=== PATIENT | female | born 1960 | race Caucasian/White ===

== ENCOUNTER 2016-11-07 08:12 | Emergency (ER) | payer BC, SELFPAY ==
[~2016-11-07] VITALS: Ht 157.5 cm; Wt 78.0 kg
[~2016-11-07 08:12] MED LIST: ASPI-232 PO; CALC500C70 PO; DICL50TA3 PO; FLUT1SPR12; IBUP600T44 PO; MULT-506 PO; OMEG10007 PO; TRAM-10 PO
[2016-11-07 08:14] VITALS: O2SAT 98
[2016-11-07 08:16] VITALS: TEMP 36.4; Ht 157.5 cm; Wt 78.0 kg
[2016-11-07] MEDS ORDERED: DIAZEPAM INJ 5 MG/ML 2 ML CARP IV STA (08:35)
[2016-11-07] MEDS ORDERED: ONDANSETRON INJ 2 MG/ML 2 ML VIAL IV STA (08:35)
[2016-11-07] MEDS ORDERED: SODIUM CHLORIDE 0.9% 1000ML 1,000 ML IV STA (08:35)
--- NOTE | 2016-11-07 08:40 | EMERGENCY ROOM VISIT NOTE ---
History First contact with patient: 08:25 Chief Complaint: DIZZY Stated Complaint: DIZZINESS Nursing Triage Summary: pt here with dizziness since this am. pt states feels nauseated and like room is spinning. pt also has been having some intermittent chest pains x several days. pt has a slight headache and back pain. hx of l4-l5 problems. no deficits or weakness noted in extremeties History of Present Illness The patient is a 56 year old female who presents to the Emergency Room with complaints of dizziness. The patient states that she woke this morning with a sense of dizziness and room spinning. She states it is associated with nausea and feeling sweaty. She states she has also had intermittent chest pain at rest for the last few weeks. She states she had significant chest pressure and pain last week. The patient also reports a history of herniated L4 disc. She currently sees Dr. Blair and takes tramadol. She reports back pain but states this is not significantly different than her ongoing back pain. She rates her discomfort a 3/10. She denies any numbness, tingling, weakness in the extremities. She denies any loss of bowel or bladder control. She reports a remote history of vertigo. Review of Systems A 10 system review of systems was completed with positives and pertinent negatives listed in the HPI. Past Medical/Surgical History Medical Problems: (1) Herniated intervertebral disc (2) Hyperlipidemia Social History Smoking Status: Never Smoker Housing Status: lives with family Current/Historical Medications Scheduled Diclofenac (Voltaren), 75 MG PO BID Scheduled PRN Meclizine Hcl (Meclizine Hcl), 1 TAB PO TID PRN for Dizziness or Vertigo Tramadol (Ultram), 2-4 TABS PO Q6H PRN for Pain Allergies Coded Allergies: Codeine (Verified Allergy, Unknown, gi upset, 11/07/16) Uncoded Allergies: narcotics (Adverse Reaction, Unknown, gi upset, 11/07/16) not really allergic just makes her stomach upset Physical Exam Vital Signs Date Time Temp Pulse Resp B/P (MAP) Pulse Ox O2 Delivery O2 Flow Rate FiO2 11/07/16 10:47 62 16 118/7 97 Room Air 11/07/16 09:56 60 16 129/60 61 130/88 66 125/95 11/07/16 08:53 72 16 115/81 93 Room Air 11/07/16 08:16 62 11/07/16 08:16 36.4 75 16 139/80 97 Room Air 11/07/16 08:14 98 Room Air Physical Exam VITALS: Vitals are noted on the nurse's note and reviewed by myself. Vital signs stable. The patient is afebrile. She is not hypotensive, tachycardic or hypoxic. GENERAL: This is a 56-year-old female, in no acute distress, nondiaphoretic, well-developed well-nourished. SKIN: The skin was pale, Without rashes, erythema, edema, or bruising. There is no tenting of the skin. Capillary reflex less than 2 seconds. HEAD: Normocephalic atraumatic. EARS: External auditory canals clear, tympanic membranes pearly haque without erythema or effusion bilaterally. EYES: Pupils equal round and reactive to light and accommodation. Conjunctivae without injection, sclerae without icterus. Extraocular movements intact. there is minimal horizontal nystagmus. NOSE: Patent, turbinates without inflammation or discharge. MOUTH: Mucous membranes moist. Tonsils are not enlarged. Pharynx without erythema or exudate. Uvula midline. Airway patent. Tongue does not deviate. NECK: Supple without nuchal rigidity. No lymphadenopathy. No thyromegaly. Cervical spine is nontender. No JVD. HEART: Regular rate and rhythm without murmurs gallops or rubs. LUNGS: Clear to auscultation bilaterally without wheezes, rales or rhonchi. No retractions or accessory muscle use. ABDOMEN: Positive bowel sounds x 4. Soft, nontender, without masses or organomegaly. MUSCULOSKELETAL: No muscle atrophy, erythema, or edema noted. Full range of motion in all extremities. Strength 5/5 throughout. NEURO: Patient was alert and oriented to person place and time. Cranial nerves II through XII grossly intact. Heel reed testing intact. Negative pronator drift. Normal sensation to light and sharp touch. No focal neurological deficits. Medical Decision & Procedures ER Provider Diagnostic Interpretation: CHEST ONE VIEW PORTABLE HISTORY: Atypical chest pain COMPARISON: None. FINDINGS: The heart is top normal in size. No pleural effusions. No pneumothorax. The left lung is clear. 5 mm nodular at the density base of the right lower lobe likely represents a calcified granuloma. No focal lung consolidations to suggest pneumonia. No evidence for pulmonary edema. IMPRESSION: No acute process. CT HEAD WITHOUT CONTRAST (CT) CLINICAL HISTORY: dizziness NAUSEA COMPARISON STUDY: No previous studies for comparison. TECHNIQUE: Axial CT of the brain is performed from the vertex to the skull base. IV contrast was not administered for this examination. CT DOSE: 638.56 mGycm FINDINGS: No intra or extra-axial mass lesions are visualized. There is no CT evidence of acute cortical infarction. There is no evidence of midline shift. There is no acute hemorrhage. No calvarial fractures are visualized. There is no evidence of pathologic ventricular dilatation. There is no evidence of acute sinusitis IMPRESSION: Normal noncontrast head CT for age. Laboratory Results 11/07/16 08:25 Red Blood Count 4.71, Mean Corpuscular Volume 89.0, Mean Corpuscular Hemoglobin 28.0, Mean Corpuscular Hemoglobin Concent 31.5, Mean Platelet Volume 9.2, Neutrophils (%) (Auto) 44.9, Lymphocytes (%) (Auto) 43.5, Monocytes (%) (Auto) 7.7, Eosinophils (%) (Auto) 2.4, Basophils (%) (Auto) 1.3, Neutrophils # (Auto) 2.05, Lymphocytes # (Auto) 1.99, Monocytes # (Auto) 0.35, Eosinophils # (Auto) 0.11, Basophils # (Auto) 0.06 11/07/16 08:25 Test 11/07/16 08:25 11/07/16 09:45 White Blood Count 4.57 K/uL (4.8-10.8) Red Blood Count 4.71 M/uL (4.2-5.4) Hemoglobin 13.2 g/dL (12.0-16.0) Hematocrit 41.9 % (37-47) Mean Corpuscular Volume 89.0 fL (80-100) Mean Corpuscular Hemoglobin 28.0 pg (25-34) Mean Corpuscular Hemoglobin Concent 31.5 g/dl (32-36) Platelet Count 346 K/uL (130-400) Mean Platelet Volume 9.2 fL (7.4-10.4) Neutrophils (%) (Auto) 44.9 % Lymphocytes (%) (Auto) 43.5 % Monocytes (%) (Auto) 7.7 % Eosinophils (%) (Auto) 2.4 % Basophils (%) (Auto) 1.3 % Neutrophils # (Auto) 2.05 K/uL (1.4-6.5) Lymphocytes # (Auto) 1.99 K/uL (1.2-3.4) Monocytes # (Auto) 0.35 K/uL (0.11-0.59) Eosinophils # (Auto) 0.11 K/uL (0-0.5) Basophils # (Auto) 0.06 K/uL (0-0.2) RDW Standard Deviation 42.2 fL (36.4-46.3) RDW Coefficient of Variation 12.9 % (11.5-14.5) Immature Granulocyte % (Auto) 0.2 % Immature Granulocyte # (Auto) 0.01 K/uL (0.00-0.02) Prothrombin Time 11.3 SECONDS (9.0-12.0) Prothromb Time International Ratio 1.1 (0.9-1.1) Activated Partial Thromboplast Time 25.9 SECONDS (21.0-31.0) Partial Thromboplastin Ratio 1.0 Anion Gap 9.0 mmol/L (3-11) Est Creatinine Clear Calc Drug Dose 77.0 ml/min Estimated GFR () 97.8 Estimated GFR (Non- 84.4 BUN/Creatinine Ratio 14.1 (10-20) Calcium Level 9.1 mg/dl (8.5-10.1) Magnesium Level 2.5 mg/dl (1.8-2.4) Total Bilirubin 0.4 mg/dl (0.2-1) Aspartate Amino Transf (AST/SGOT) 15 U/L (15-37) Alanine Aminotransferase (ALT/SGPT) 25 U/L (12-78) Alkaline Phosphatase 93 U/L (45-117) Troponin I < 0.015 ng/ml (0-0.045) Total Protein 7.0 gm/dl (6.4-8.2) Albumin 3.7 gm/dl (3.4-5.0) Globulin 3.3 gm/dl (2.5-4.0) Albumin/Globulin Ratio 1.1 (0.9-2) Thyroid Stimulating Hormone (TSH) 2.260 uIu/ml (0.300-4.500) Urine Color YELLOW Urine Appearance CLEAR (CLEAR) Urine pH 8.0 (4.5-7.5) Urine Specific [place] 1.008 (1.000-1.030) Urine Protein NEG (NEG) Urine Glucose (UA) NEG (NEG) Urine Ketones NEG (NEG) Urine Occult Blood NEG (NEG) Urine Nitrite NEG (NEG) Urine Bilirubin NEG (NEG) Urine Urobilinogen NEG (NEG) Urine Leukocyte Esterase NEG (NEG) Medications Administered Medications (Trade) Dose Ordered Sig/[place] Route Start Time Stop Time Status Last Admin Dose Admin Sodium Chloride 1,000 ml @ 999 mls/hr Q1H1M STAT IV 11/07/16 08:35 11/07/16 09:35 DC 11/07/16 08:52 999 MLS/HR Ondansetron HCl (Zofran Inj) 4 mg NOW STAT IV 11/07/16 08:35 11/07/16 08:37 DC 11/07/16 08:52 4 MG Diazepam (Valium Inj) 5 mg NOW STAT IV 11/07/16 08:35 11/07/16 08:37 DC 11/07/16 08:52 5 MG Meclizine HCl (Antivert Tab) 25 mg NOW STAT PO 11/07/16 09:39 11/07/16 09:41 DC 11/07/16 09:39 25 MG Procedure The patient was monitored on a cardiac monitor technician. They maintained a normal sinus rhythm without ectopy. ECG Indication: chest pain Rate (beats per minute): 62 Rhythm: normal sinus Findings: no acute ischemic change Comparison ECG Date: no prior available ED Course The patient was seen and examined. Previous visits were reviewed. The patient does not fever or leukocytosis. She does not have any significant electrolyte abnormality. Troponin was not elevated. TSH was within normal limits. INR was 1.1. Urinalysis was negative. Orthostatic vital signs were negative. EKG does not reveal any arrhythmia or acute ischemia Chest x-ray does not reveal any acute process CT scan of the brain does not reveal a significant abnormality The patient was hydrated with normal saline She was given 4 mg IV Zofran and 5 mg IV Valium with mild improvement in her symptoms She was then given 25 mg oral meclizine with marked improvement in her dizziness The patient presents to the emergency department with dizziness which she describes as a sense of spinning that started when she awoke this morning. It is worse with change in position. She does have some mild horizontal nystagmus. I suspect this represents benign positional vertigo. She does not have any neurologic deficit on exam. She was feeling much better with the above treatment. She did complain of a slight headache which seems similar to her previous headaches and she did not want to try any medication. She felt well not to go home. She will be given a prescription for meclizine. She should return to the ER with any worsening symptoms. The case was discussed with Dr. Parson who agrees with the assessment and treatment plan. Medical Decision DIFFERENTIAL DIAGNOSIS: Aortic dissection, myocarditis, pericarditis, cervical disc disease, costochondritis, herpes zoster, rib fracture, pleuritis, pneumonia , pulmonary embolus, tension pneumothorax, anxiety disorder, somatoform disorder , choledocholithiasis, status, esophagitis, esophageal spasm, esophageal reflux , esophageal rupture, pancreatitis, peptic ulcer disease, cardiac ischemia, ST elevation NV, acute coronary syndrome, arrhythmia, coronary artery vasospasm. vavular heart disease, coronary artery disease, CVA, TIA, vertigo, dehydration, among others among others. Impression Primary Impression: Dizziness Additional Impression: Vertigo Departure Information Dispostion Home / Self-Care Condition GOOD Prescriptions Meclizine Hcl (MECLIZINE HCL) 25 Mg Tab 1 TAB PO TID Y for Dizziness or Vertigo for 10 Days, #30 TAB Prov: Carine Allison PA-C 11/07/16 Referrals No Doctor, Assigned (PCP) Forms HOME CARE DOCUMENTATION FORM, IMPORTANT VISIT INFORMATION, Work Instructions Return To Work: 2 days Patient Instructions Dizziness Vertigo Manage 2-Observe, SSN Funding Additional Instructions Meclizine as prescribed, as needed for dizziness Contact your family doctor today to schedule a follow-up appointment for further evaluation and management Return to the emergency Department with any worsening symptoms, numbness, tingling, weakness of the extremities Problem Qualifiers
[2016-11-07 08:41] LABS: BASO % 1.3 %; BASO ABS # 0.06 K/uL (0-0.2); COMPLETE YES; EOS % 2.4 %; HEMATOCRIT 41.9 % (37-47); IG% 0.2 %; LYMPH % 43.5 %; LYMPH ABS # 1.99 K/uL (1.2-3.4); MEAN CORPUSCULAR HGB CONC 31.5 g/dl (32-36); MEAN PLATELET VOLUME 9.2 fL (7.4-10.4); MONO % 7.7 %; NEUT % 44.9 %; PLATELET COUNT 346 K/uL (130-400); RED BLOOD COUNT 4.71 M/uL (4.2-5.4); WHITE BLOOD COUNT 4.57 K/uL (4.8-10.8)
[2016-11-07 08:51] LABS: CALCIUM 9.1 mg/dl (8.5-10.1)
[2016-11-07 08:53] LABS: ALT/SGPT 25 U/L (12-78); AST/SGOT 15 U/L (15-37); BLOOD UREA NITROGEN 11 mg/dl (7-18); BUN/CREATININE RATIO 14.1 (10-20); CARBON DIOXIDE 26 mmol/L (21-32); CHLORIDE 110 mmol/L (98-107); CREATININE 0.78 mg/dl (0.60-1.20); GLUCOSE 100 mg/dl (70-99); MAGNESIUM 2.5 mg/dl (1.8-2.4); POTASSIUM 3.7 mmol/L (3.5-5.1); SODIUM 145 mmol/L (136-145)
--- NOTE | 2016-11-07 08:54 | DIAGNOSTIC IMAGING REPORT ---
CHEST ONE VIEW PORTABLE HISTORY: Atypical chest pain COMPARISON: None. FINDINGS: The heart is top normal in size. No pleural effusions. No pneumothorax. The left lung is clear. 5 mm nodular at the density base of the right lower lobe likely represents a calcified granuloma. No focal lung consolidations to suggest pneumonia. No evidence for pulmonary edema. IMPRESSION: No acute process. Electronically signed by: Alonzo Burnette M.D. 11/07/2016 8:53 AM Dictated Date/Time: 11/07/2016 8:51 AM
[2016-11-07 08:58] LABS: INR 1.1 (0.9-1.1); PROTHROMBIN TIME (PATIENT) 11.3 SECONDS (9.0-12.0)
[2016-11-07 09:04] LABS: ALB/GLOB RATIO 1.1 (0.9-2); ALKALINE PHOSPHATASE 93 U/L (45-117)
--- NOTE | 2016-11-07 09:28 | DIAGNOSTIC IMAGING REPORT ---
CT HEAD WITHOUT CONTRAST (CT) CLINICAL HISTORY: dizziness NAUSEA COMPARISON STUDY: No previous studies for comparison. TECHNIQUE: Axial CT of the brain is performed from the vertex to the skull base. IV contrast was not administered for this examination. CT DOSE: 638.56 mGycm FINDINGS: No intra or extra-axial mass lesions are visualized. There is no CT evidence of acute cortical infarction. There is no evidence of midline shift. There is no acute hemorrhage. No calvarial fractures are visualized. There is no evidence of pathologic ventricular dilatation. There is no evidence of acute sinusitis IMPRESSION: Normal noncontrast head CT for age. Electronically signed by: Keyshawn Hughes M.D. 11/07/2016 9:26 AM Dictated Date/Time: 11/07/2016 9:24 AM
[2016-11-07] MEDS ORDERED: TRAM-10 PO (09:31)
[2016-11-07] MEDS ORDERED: DICL-201 PO (09:31)
[2016-11-07] MEDS ORDERED: MECLIZINE HCL 25 MG TAB PO STA (09:39)
[2016-11-07 10:24] LABS: URINE APPEARANCE CLEAR (CLEAR); URINE BILIRUBIN NEG (NEG); URINE COLOR YELLOW; URINE NITRITE NEG (NEG); URINE SPECIFIC GRAVITY 1.008 (1.000-1.030); UROBILINOGEN NEG (NEG); ZZUR CULT IF INDIC CLEAN CATCH NO
[2016-11-07 10:26] LABS: MANUAL MICROSCOPIC REQUIRED? NO; REVIEW REQ? NO
[2016-11-07 10:47] VITALS: BP 118/7; PULSE 62; O2SAT 97
[2016-11-07] MEDS ORDERED: MECL1TAB42 PO (10:52)
== END 2016-11-07 11:16 | disposition home or self-care (01) ==
LOC: EDBD 08:16 → C.EDB 08:16 → MERGE 08:16 → C.EDB 11:16
DX: R42 Dizziness and giddiness (principal)

== ENCOUNTER 2018-01-13 16:04 | Emergency (ER) | payer OTHER ==
[~2018-01-13] VITALS: Ht 157.5 cm; Wt 80.3 kg
[~2018-01-13 16:04] MED LIST changes: +DICL-201 PO; -FLUT1SPR12; -MULT-506 PO; -OMEG10007 PO
[2018-01-13 16:13] VITALS: TEMP 36.7
[2018-01-13 16:26] VITALS: O2SAT 99
[2018-01-13] MEDS ORDERED: METOCLOPRAMIDE HCL INJ 5 MG/ML 2 ML VIAL IV. STA (16:28)
[2018-01-13] MEDS ORDERED: ACETAMINOPHEN 325 MG TAB PO STA (16:28)
[2018-01-13] MEDS ORDERED: DiphenhydrAMINE HCL 50 MG/ML VIAL IV STA (16:28)
[2018-01-13] MEDS ORDERED: SODIUM CHLORIDE 0.9% 1000ML 1,000 ML IV STA (16:28)
--- NOTE | 2018-01-13 16:29 | EMERGENCY ROOM VISIT NOTE ---
History Report prepared by Torsten: Juan C Rodriguez Under the Supervision of: Dr. Colton Sanchez M.D. First contact with patient: 16:16 Chief Complaint: DIZZY Stated Complaint: SWOLLEN EYE NAUSEA DIZZY History of Present Illness The patient is a 57 year old female who presents to the Emergency Room with complaints of dizziness and nausea beginning last night, and right-sided facial drooping beginning at 10:00 this morning. The patient denies using blood thinners, a history of stroke, or a history of Brown's palsy. She notes a headache on the top of her head that is constant. She reports she took 2 ibuprofen last night with no improvement. The patient denies recent head trauma , but reports that she fell 3 times recently. She states she is on atorvastatin for cholesterol. Source of History: patient Onset: last night (dizziness and nausea), this morning at 10:00 (facial drooping) Position: head, other (global) Quality: other (nausea, vomiting, facial drooping) Modifying Factors (Relieving): other (no improvement with ibuprofen) Associated Symptoms: + headache (top of head, constant) Review of Systems See HPI for pertinent positives and negatives. A total of ten systems were reviewed and were otherwise negative. Past Medical & Surgical Medical Problems: (1) Herniated intervertebral disc (2) Hyperlipidemia Surgical Problems: (1) History of abdominoplasty (2) History of oophorectomy Family History Patient reports no known family medical history. Social History Smoking Status: Never Smoker Smokeless Tobacco Use: No Alcohol Use: none Marital Status: single Housing Status: lives with family Occupation Status: employed Current/Historical Medications Scheduled Artificial Tears Oph Oint (Lacri-Lube Sop Oph Oint), 0.25-0.5 INCH OP QID Aspirin (Aspirin Ec), 81 MG PO DAILY Atorvastatin (Lipitor), 10 MG PO DAILY Escitalopram (Lexapro), 10 MG PO DAILY Fish Oil ([place]-3), 1 CAP PO DAILY Multivitamin (Multivitamin), 1 TAB PO DAILY Prednisone (Prednisone), 60 MG PO DAILY Valacyclovir Hcl (Valtrex), 1 GM PO TID Scheduled PRN Acetaminophen (Tylenol), 500 MG PO UD PRN for Pain Fluticasone Propionate (Nasal) (Flonase Allergy Relief Ch), 2 SPRAYS MALINDA DAILY PRN for Allergy Symptoms Ibuprofen (Advil), 400-600 MG PO Q6H PRN for Pain Naproxen (Aleve), 220 MG PO UD PRN for Pain Tramadol (Ultram), 25-50 MG PO Q6H PRN for Pain Allergies Coded Allergies: Codeine (Unverified Adverse Reaction, Mild, Naisea and vomiting, 04/11/16) Uncoded Allergies: narcotics (Adverse Reaction, Unknown, gi upset, 11/08/16) not really allergic just makes her stomach upset Physical Exam Vital Signs Date Time Temp Pulse Resp B/P (MAP) Pulse Ox O2 Delivery O2 Flow Rate FiO2 01/13/18 18:12 56 20 132/78 99 01/13/18 17:26 54 132/81 98 Room Air 57 134/85 60 131/77 01/13/18 16:26 99 Room Air 01/13/18 16:13 36.7 64 18 106/69 99 Room Air Physical Exam GENERAL: Awake, alert, well-appearing, NAD. Wearing glasses. HENT: Normocephalic, atraumatic. EYES: Normal conjunctiva. Sclera non-icteric. PERRL. No anisocoria. NECK: Supple. No nuchal rigidity. FROM. RESPIRATORY: CTAB, no rhonchi, wheezing, crackles CARDIAC: RRR, no MRG ABDOMEN: Soft, NTND, BS+ MSK: No chest wall TTP, no LE edema NEURO: CN 2-12 intact with exception of facial nerve palsy, complete right side , watery right eye. 5/5 upper and lower extremity strength, no dysmetria, no drift, good finger to nose, no sensory deficits. Finger count grossly normal. SKIN: No rash or jaundice noted. Medical Decision & Procedures ER Provider Diagnostic Interpretation: Radiology results as stated below per my review and radiologist interpretation: CHEST ONE VIEW PORTABLE CLINICAL HISTORY: 57 years-old Female presenting with EVALUATE WEAKNESS. TECHNIQUE: Portable upright AP view of the chest was obtained. COMPARISON: 11/07/2016. FINDINGS: Atherosclerosis of the aortic arch. Cardiac silhouette normal in size. Calcified granuloma again noted at the right lung base. No other focal opacity. No large effusion or pneumothorax. Osseous structures normal. Upper abdomen normal. IMPRESSION: 1. No acute cardiopulmonary disease. Electronically signed by: Wesly Clark M.D. 01/13/2018 4:53 PM Dictated Date/Time: 01/13/2018 4:[address] OF THE HEAD WITHOUT CONTRAST CLINICAL HISTORY: Weakness. Dizziness. COMPARISON STUDY: Head CT November 07, 2016. CT DOSE: 537.48 mGy.cm TECHNIQUE: Helical axial images of the head were obtained without IV contrast. Automated exposure control was utilized for the study. A dose lowering technique was utilized adhering to the principles of ALARA. FINDINGS: No acute intracranial hemorrhage, midline shift or mass effect is present. Brain volume is normal. Ventricular system is normal. Basilar cisterns are patent. Eller-white differentiation is maintained. There are no findings to suggest acute dural sinus thrombosis or acute territorial infarct. There are no significant calvarial abnormalities. Visualized portions of the sinuses and mastoid air cells are clear. IMPRESSION: No acute intracranial findings. Electronically signed by: Abdifatah Rush M.D. 01/13/2018 5:15 PM Dictated Date/Time: 01/13/2018 5:13 PM Laboratory Results 01/13/18 16:30 Red Blood Count 4.51, Mean Corpuscular Volume 88.2, Mean Corpuscular Hemoglobin 29.5, Mean Corpuscular Hemoglobin Concent 33.4, Mean Platelet Volume 9.3, Neutrophils (%) (Auto) 51.1, Lymphocytes (%) (Auto) 39.5, Monocytes (%) (Auto) 5.5, Eosinophils (%) (Auto) 2.3, Basophils (%) (Auto) 1.4, Neutrophils # (Auto) 2.49, Lymphocytes # (Auto) 1.93, Monocytes # (Auto) 0.27, Eosinophils # (Auto) 0.11, Basophils # (Auto) 0.07 01/13/18 16:30 Test 01/13/18 16:30 01/13/18 16:45 01/13/18 17:30 White Blood Count 4.88 K/uL (4.8-10.8) Red Blood Count 4.51 M/uL (4.2-5.4) Hemoglobin 13.3 g/dL (12.0-16.0) Hematocrit 39.8 % (37-47) Mean Corpuscular Volume 88.2 fL (80-100) Mean Corpuscular Hemoglobin 29.5 pg (25-34) Mean Corpuscular Hemoglobin Concent 33.4 g/dl (32-36) Platelet Count 320 K/uL (130-400) Mean Platelet Volume 9.3 fL (7.4-10.4) Neutrophils (%) (Auto) 51.1 % Lymphocytes (%) (Auto) 39.5 % Monocytes (%) (Auto) 5.5 % Eosinophils (%) (Auto) 2.3 % Basophils (%) (Auto) 1.4 % Neutrophils # (Auto) 2.49 K/uL (1.4-6.5) Lymphocytes # (Auto) 1.93 K/uL (1.2-3.4) Monocytes # (Auto) 0.27 K/uL (0.11-0.59) Eosinophils # (Auto) 0.11 K/uL (0-0.5) Basophils # (Auto) 0.07 K/uL (0-0.2) RDW Standard Deviation 44.3 fL (36.4-46.3) RDW Coefficient of Variation 13.7 % (11.5-14.5) Immature Granulocyte % (Auto) 0.2 % Immature Granulocyte # (Auto) 0.01 K/uL (0.00-0.02) Prothrombin Time 11.1 SECONDS (9.0-12.0) Prothromb Time International Ratio 1.1 (0.9-1.1) Activated Partial Thromboplast Time 25.2 SECONDS (21.0-31.0) Partial Thromboplastin Ratio 1.0 Anion Gap 8.0 mmol/L (3-11) Est Creatinine Clear Calc Drug Dose 70.0 ml/min Estimated GFR () 86.3 Estimated GFR (Non- 74.5 BUN/Creatinine Ratio 18.5 (10-20) Calcium Level 9.5 mg/dl (8.5-10.1) Phosphorus Level 2.9 mg/dl (2.5-4.9) Magnesium Level 2.6 mg/dl (1.8-2.4) Total Bilirubin 0.4 mg/dl (0.2-1) Direct Bilirubin 0.1 mg/dl (0-0.2) Aspartate Amino Transf (AST/SGOT) 20 U/L (15-37) Alanine Aminotransferase (ALT/SGPT) 29 U/L (12-78) Alkaline Phosphatase 101 U/L (45-117) Troponin I < 0.015 ng/ml (0-0.045) Pro-B-Type Natriuretic Peptide 42 pg/ml (0-900) Total Protein 7.5 gm/dl (6.4-8.2) Albumin 4.0 gm/dl (3.4-5.0) Thyroid Stimulating Hormone (TSH) 2.300 uIu/ml (0.300-4.500) Lyme Disease IgG Antibody NEG (NEG) Lyme Disease IgM Antibody NEG (NEG) Bedside Glucose 130 mg/dl (70-90) Urine Color YELLOW Urine Appearance CLEAR (CLEAR) Urine pH 5.0 (4.5-7.5) Urine Specific [place] 1.010 (1.000-1.030) Urine Protein NEG (NEG) Urine Glucose (UA) NEG (NEG) Urine Ketones NEG (NEG) Urine Occult Blood NEG (NEG) Urine Nitrite NEG (NEG) Urine Bilirubin NEG (NEG) Urine Urobilinogen NEG (NEG) Urine Leukocyte Esterase NEG (NEG) Laboratory results reviewed by me Medications Administered Medications (Trade) Dose Ordered Sig/[place] Route Start Time Stop Time Status Last Admin Dose Admin Sodium Chloride 1,000 ml @ 999 mls/hr Q1H1M STAT IV 01/13/18 16:28 01/13/18 17:28 DC 01/13/18 16:28 999 MLS/HR Metoclopramide HCl (Reglan Inj) 10 mg NOW STAT IV. 01/13/18 16:28 01/13/18 16:30 DC 01/13/18 16:49 10 MG Acetaminophen (Tylenol Tab) 650 mg NOW STAT PO 01/13/18 16:28 01/13/18 16:30 DC 01/13/18 16:50 650 MG Diphenhydramine HCl (Benadryl Inj) 25 mg NOW STAT IV 01/13/18 16:28 01/13/18 16:30 DC 01/13/18 16:49 25 MG Valacyclovir HCl (Valtrex Tab) 1,000 mg NOW ONCE PO 01/13/18 17:45 01/13/18 17:46 DC 01/13/18 18:01 1,000 MG Prednisone (PredniSONE TAB) 60 mg NOW STAT PO 01/13/18 17:40 01/13/18 17:41 DC 01/13/18 18:01 60 MG ECG Per My Interpretation Indication: nausea Rate (beats per minute): 53 Rhythm: sinus bradycardia Findings: other (TWI in lead 3) Comparison ECG Date: no prior available ED Course 1620: The patient was evaluated in room C1B. A complete history and physical exam was performed. 1804: I consulted Dr. Dietz - Neurology. She believes that if her symptoms involve the forehead, it is more consistent with Brown's palsy. 1810: I reevaluated the patient. Discussed results and discharge instructions: she verbalized understanding and agreement. The patient is ready for discharge. Medical Decision Nursing notes reviewed. Ancillary studies and prior records reviewed. The patient is a 57 year old female who presents to the Emergency Room with complaints of dizziness and nausea beginning last night, and right-sided facial drooping beginning at 10:00 this morning. Differential diagnosis: Etiologies such as Brown's palsy, metabolic, infection, hypo/hyperglycemia, electrolyte abnormalities, cardiac sources, intracerebral event, toxicologic, neurologic, as well as others were entertained. Patient was seen and evaluated the bedside. The patient did have recent travel and was noted to have some right-sided facial droop which began around 10 AM this morning. The patient denies any known. On exam the patient does have notable right-sided facial droop with virtual complete paralysis of the 7th nerve. The patient does not have forehead sparing. Likely due to the peripheral in etiology however the patient did fairly unremarkable. CT brain negative acute. The patient was given first dose of Valtrex as well as prednisone I did speak with the on-call neurologist who agreed that if the paralysis involve the forehead more likely to be a peripheral etiology. Given this I believe the patient is suitable for outpatient follow-up treatment at this time. The patient was told to follow-up with PCP as well as possible specialist in the future if this is not improved within the next week. Patient was given strict follow-up, discharge, and return precautions. All questions were answered. Patient was deemed suitable for outpatient follow-up at this time. Patient agreed with the plan of care and was safely discharged home. Medication Reconcilliation Current Medication List: was personally reviewed by me Blood Pressure Screening Patient's blood pressure: Normal blood pressure Blood pressure disposition: Did not require urgent referral Consults Time Called: 1741 Consulting Physician: Dr. Dietz - Neurology Returned Call: [phone] Dietz - Neurology. She believes that if her symptoms involve the forehead, it is more consistent with Brown's palsy. Impression Primary Impression: Brown's palsy Scribe Attestation The scribe's documentation has been prepared under my direction and personally reviewed by me in its entirety. I confirm that the note above accurately reflects all work, treatment, procedures, and medical decision making performed by me. Departure Information Dispostion Home / Self-Care Prescriptions Artificial Tears Oph Oint (Lacri-Lube Sop Oph Oint) Oint 0.25-0.5 INCH OP QID, #1 TUBE TO THE AFFECTED EYE UP TO QID PRN Prov: Colton Sanchez M.D. 01/13/18 Valacyclovir Hcl (VALTREX) 1 Gm Tab 1 GM PO TID for 7 Days, #21 TAB Prov: Colton Sanchez M.D. 01/13/18 Prednisone (Prednisone) 20 Mg Tab 60 MG PO DAILY for 6 Days, #18 TAB Prov: Colton Sanchez M.D. 01/13/18 Referrals No Doctor, Assigned (PCP) Forms HOME CARE DOCUMENTATION FORM, IMPORTANT VISIT INFORMATION Patient Instructions ED [facility] Additional Instructions Please return to the emergency department if you have worsening or recurrent symptoms not amenable to at-home treatment. Please call for a follow-up appointment with her primary care physician. Please take your medications as prescribed. If you have other concerns and/or complaints please feel free to also call your primary care physician's office or return the ED for further evaluation, management, and treatment. You may take tylenol 650 mg every 6 hours as needed for pain/fever unless told by your physician to not take it or have liver problems. Take your medications as prescribed. You may apply Lacri-Lube to the affected eye. Consider purchasing an eye patch as an eye protectant. Please take your steroids preferably in the morning and with food as they may cause some upset stomach and cause you to be very awake and alert. Please take Pepcid 20 mg twice daily to avoid any GI upset while taking the steroids and baby aspirin. Avoid taking NSAIDs like Motrin, ibuprofen, Advil, or diclofenac while taking the steroids. Of note a Lyme's test was pending. It should result this evening. If it is positive you will be called and started on antibiotics, if negative you will not receive a phone call. Dr. Ave Dietz [facility] - clinical neurophysiology [address], [place] [address] [phone] You have been examined and treated today on an emergency basis only. This is not a substitute for, or an effort to provide, complete comprehensive medical care. It is impossible to recognize and treat all injuries or illnesses in a single emergency department visit. It is therefore important that you follow up closely with [facility], your PCP, and/or your specialist(s). Call as soon as possible for an appointment. Thank you for your time and consideration. I look forward to speaking with you again soon. Please don't hesitate to call us if you have any questions.
[2018-01-13 16:48] LABS: BASO % 1.4 %; BASO ABS # 0.07 K/uL (0-0.2); EOS % 2.3 %; EOS ABS # 0.11 K/uL (0-0.5); HEMATOCRIT 39.8 % (37-47); HEMOGLOBIN 13.3 g/dL (12.0-16.0); IG# 0.01 K/uL (0.00-0.02); LYMPH % 39.5 %; LYMPH ABS # 1.93 K/uL (1.2-3.4); MEAN CELL VOLUME 88.2 fL (80-100); MEAN CORPUSCULAR HEMOGLOBIN 29.5 pg (25-34); MEAN CORPUSCULAR HGB CONC 33.4 g/dl (32-36); MEAN PLATELET VOLUME 9.3 fL (7.4-10.4); MONO % 5.5 %; MONO ABS # 0.27 K/uL (0.11-0.59); NEUT % 51.1 %; NEUT ABS # 2.49 K/uL (1.4-6.5); PLATELET COUNT 320 K/uL (130-400); RED CELL DISTRIBUTION WIDTH CV 13.7 % (11.5-14.5); RED CELL DISTRIBUTION WIDTH SD 44.3 fL (36.4-46.3); WHITE BLOOD COUNT 4.88 K/uL (4.8-10.8)
--- NOTE | 2018-01-13 16:54 | DIAGNOSTIC IMAGING REPORT ---
CHEST ONE VIEW PORTABLE CLINICAL HISTORY: 57 years-old Female presenting with EVALUATE WEAKNESS. TECHNIQUE: Portable upright AP view of the chest was obtained. COMPARISON: 11/07/2016. FINDINGS: Atherosclerosis of the aortic arch. Cardiac silhouette normal in size. Calcified granuloma again noted at the right lung base. No other focal opacity. No large effusion or pneumothorax. Osseous structures normal. Upper abdomen normal. IMPRESSION: 1. No acute cardiopulmonary disease. Electronically signed by: Wesly Clark M.D. 01/13/2018 4:53 PM Dictated Date/Time: 01/13/2018 4:52 PM
[2018-01-13 16:56] VITALS: Ht 157.5 cm; Wt 80.3 kg
[2018-01-13 16:56] LABS: INR 1.1 (0.9-1.1); PTT PATIENT 25.2 SECONDS (21.0-31.0)
--- NOTE | 2018-01-13 17:17 | DIAGNOSTIC IMAGING REPORT ---
CT OF THE HEAD WITHOUT CONTRAST CLINICAL HISTORY: Weakness. Dizziness. COMPARISON STUDY: Head CT November 07, 2016. CT DOSE: 537.48 mGy.cm TECHNIQUE: Helical axial images of the head were obtained without IV contrast. Automated exposure control was utilized for the study. A dose lowering technique was utilized adhering to the principles of ALARA. FINDINGS: No acute intracranial hemorrhage, midline shift or mass effect is present. Brain volume is normal. Ventricular system is normal. Basilar cisterns are patent. Eller-white differentiation is maintained. There are no findings to suggest acute dural sinus thrombosis or acute territorial infarct. There are no significant calvarial abnormalities. Visualized portions of the sinuses and mastoid air cells are clear. IMPRESSION: No acute intracranial findings. Electronically signed by: Abdifatah Rush M.D. 01/13/2018 5:15 PM Dictated Date/Time: 01/13/2018 5:13 PM
[2018-01-13 17:24] LABS: ALKALINE PHOSPHATASE 101 U/L (45-117); ALT/SGPT 29 U/L (12-78); AST/SGOT 20 U/L (15-37); BLOOD UREA NITROGEN 16 mg/dl (7-18); CALCIUM 9.5 mg/dl (8.5-10.1); CARBON DIOXIDE 24 mmol/L (21-32); CREATININE 0.86 mg/dl (0.60-1.20); GLUCOSE 118 mg/dl (70-99); PHOSPHORUS 2.9 mg/dl (2.5-4.9); POTASSIUM 3.8 mmol/L (3.5-5.1); SODIUM 142 mmol/L (136-145); TOTAL PROTEIN 7.5 gm/dl (6.4-8.2)
[2018-01-13] MEDS ORDERED: PRED20TA PO (17:44)
[2018-01-13] MEDS ORDERED: VALA1TAB31 PO (17:44)
[2018-01-13] MEDS ORDERED: ARTIOIN OP (17:44)
[2018-01-13] MEDS ORDERED: ACET-1256 PO (18:01)
[2018-01-13 18:12] VITALS: BP 132/78; PULSE 56; O2SAT 99
[2018-01-16] MEDS ORDERED: MULT-506 PO (08:24)
[2018-01-16] MEDS ORDERED: OMEG10007 PO (08:24)
[2018-01-16] MEDS ORDERED: FLUT1SPR12 NAE (11:15)
[2018-01-16] MEDS ORDERED: TRAM-10 PO (15:11)
== END 2018-01-13 18:14 | disposition home or self-care (01) ==
LOC: C.EDB 16:06 → C.EDC 18:14
DX: G51.0 Bell's palsy (principal); R00.1 Bradycardia, unspecified; R42 Dizziness and giddiness; R11.0 Nausea; R51 Headache; E78.5 Hyperlipidemia, unspecified; Z79.82 Long term (current) use of aspirin; Z79.899 Other long term (current) drug therapy; Z88.5 Allergy status to narcotic agent; Z86.73 Personal history of transient ischemic attack (TIA), and cerebral infarction without residual deficits

== ENCOUNTER 2018-01-16 15:57 | Emergency (ER) | payer OTHER ==
[~2018-01-16 15:57] MED LIST changes: +ACET-1256 PO; +ARTIOIN OP; -ASPI-232 PO; -CALC500C70 PO; -DICL-201 PO; -DICL50TA3 PO; +FLUT1SPR12 NAE; -IBUP600T44 PO; +MULT-506 PO; +OMEG10007 PO; +PRED20TA PO; +VALA1TAB31 PO
[2018-01-16 16:00] VITALS: TEMP 36.7
[2018-01-16] MEDS ORDERED: SODIUM CHLORIDE 0.9% 1000ML 1,000 ML IV STA (16:56)
[2018-01-16] MEDS ORDERED: MECLIZINE HCL 25 MG TAB PO STA (16:56)
[2018-01-16] MEDS ORDERED: ONDANSETRON 8 MG/54 ML D5W IV STA (16:56)
[2018-01-16 17:13] VITALS: O2SAT 98; Ht 157.5 cm
[2018-01-16 17:33] LABS: BASO % 0.6 %; BASO ABS # 0.05 K/uL (0-0.2); EOS % 0.3 %; EOS ABS # 0.03 K/uL (0-0.5); HEMATOCRIT 39.8 % (37-47); HEMOGLOBIN 13.2 g/dL (12.0-16.0); IG# 0.02 K/uL (0.00-0.02); LYMPH % 31.7 %; LYMPH ABS # 2.79 K/uL (1.2-3.4); MEAN CELL VOLUME 88.4 fL (80-100); MEAN CORPUSCULAR HEMOGLOBIN 29.3 pg (25-34); MEAN CORPUSCULAR HGB CONC 33.2 g/dl (32-36); MEAN PLATELET VOLUME 9.4 fL (7.4-10.4); MONO % 6.7 %; MONO ABS # 0.59 K/uL (0.11-0.59); NEUT % 60.5 %; NEUT ABS # 5.32 K/uL (1.4-6.5); PLATELET COUNT 344 K/uL (130-400); RED CELL DISTRIBUTION WIDTH CV 13.7 % (11.5-14.5); RED CELL DISTRIBUTION WIDTH SD 44.6 fL (36.4-46.3)
--- NOTE | 2018-01-16 17:37 | DIAGNOSTIC IMAGING REPORT ---
CHEST ONE VIEW PORTABLE CLINICAL HISTORY: dizzy VOMITING COMPARISON STUDY: 01/13/2018 FINDINGS: The heart is mildly enlarged. There is no failure. There is no focal pulmonary consolidation. There are no pleural effusions. There is a calcified right lower lobe granuloma. There is no free intraperitoneal air.[ IMPRESSION: No active disease in the chest. Electronically signed by: Keyshawn Hughes M.D. 01/16/2018 5:35 PM Dictated Date/Time: 01/16/2018 5:35 PM
[2018-01-16 17:41] LABS: PTT PATIENT 22.7 SECONDS (21.0-31.0)
[2018-01-16] MEDS ORDERED: ASPI81TA28 PO (18:01)
[2018-01-16] MEDS ORDERED: ATOR10TA82 PO (18:01)
[2018-01-16] MEDS ORDERED: IBUP-1277 PO (18:01)
[2018-01-16] MEDS ORDERED: ESCI10TA17 PO (18:01)
[2018-01-16] MEDS ORDERED: NAPR1TAB9 PO (18:01)
[2018-01-16 18:08] LABS: ALBUMIN 3.7 gm/dl (3.4-5.0); ALKALINE PHOSPHATASE 87 U/L (45-117); ALT/SGPT 23 U/L (12-78); AST/SGOT 14 U/L (15-37); BLOOD UREA NITROGEN 18 mg/dl (7-18); CALCIUM 9.2 mg/dl (8.5-10.1); CARBON DIOXIDE 27 mmol/L (21-32); CREATININE 0.81 mg/dl (0.60-1.20); GLUCOSE 103 mg/dl (70-99); POTASSIUM 3.1 mmol/L (3.5-5.1); SODIUM 143 mmol/L (136-145); TOTAL PROTEIN 7.1 gm/dl (6.4-8.2)
[2018-01-16] MEDS ORDERED: [UNRECOGNIZED DRUG - OTHER] OPB (18:08)
[2018-01-16] MEDS ORDERED: ACET-1693 PO (18:08)
[2018-01-16] MEDS ORDERED: ARTI1SOL8 OPB (18:08)
[2018-01-16] MEDS ORDERED: POTASSIUM CHLORIDE 10 MEQ TABCR PO STA (18:10)
[2018-01-16] MEDS ORDERED: ONDA4TAB65 PO (18:15)
--- NOTE | 2018-01-16 18:18 | DIAGNOSTIC IMAGING REPORT ---
HEAD WITHOUT CONTRAST (CT) CLINICAL HISTORY: 57 years-old Female presenting with EVALUATE WEAKNESS. TECHNIQUE: Multidetector CT imaging of the head was performed without the use of intravenous contrast. IV contrast: None. A dose lowering technique was used consistent with the principles of ALARA (as low as reasonably achievable). COMPARISON: 01/13/2018. CT DOSE (mGy.cm): The estimated cumulative dose is 823.94 mGycm. FINDINGS: Civil Rights Representative topogram: Unremarkable. Ventricles and sulci normal in size. Brain parenchyma normal in appearance with preserved haque-white differentiation. No mass effect or midline shift. No hemorrhage or acute territorial infarct. No extra-axial fluid collection. Paranasal sinuses and mastoid air cells clear. Calvarium intact. IMPRESSION: 1. No acute intracranial abnormality. Electronically signed by: Wesly Clark M.D. 01/16/2018 6:17 PM Dictated Date/Time: 01/16/2018 6:15 PM
[2018-01-16 18:26] VITALS: BP 149/90; PULSE 73; O2SAT 98
[2018-01-16] MEDS ORDERED: PROMETHAZINE HCL INJ 25 MG in SODIUM CHLORIDE 0.9% 50ML 50 ML IV STA (18:29)
[2018-01-16] MEDS ORDERED: PROMETHAZINE HCL INJ 25 MG/ML 1 ML VIAL ONE (18:33)
[2018-01-16] MEDS ORDERED: PROM12.57 PO (18:57)
--- NOTE | 2018-01-17 00:21 | EMERGENCY ROOM VISIT NOTE ---
History Report prepared by Torsten: Mani Veliz Under the Supervision of: Dr. Gavino López D.O. First contact with patient: 16:47 Chief Complaint: VOMITING Stated Complaint: THROWING UP,DIZZY History of Present Illness The patient is a 57 year old female who presents to the Emergency Room with complaints of nausea, vomiting, and dizziness that started this morning. The patient states she was here Saturday where she was diagnosed with Apison Palsy and given anti viral, eye ointment and Prednisone. She notes that after she took the prednisone she threw it up so she went to her PCP and was given an anti nausea that made her more sick and dizzy that worsened with movement. She reports that she feels like she is going to pass out, she has a headache, tingling in her legs and no recent tick bites. She notes that the dizziness/ lightheadedness is worse with movement. No other exacerbating or remitting factors. Pt denies change in vision, fevers, chest pain, shortness of breath, diarrhea, pain with urination, and melena. Source of History: patient Onset: This morning Position: abdomen Modifying Factors (Worsening): movement Associated Symptoms: + nausea, + vomiting, + weakness, + numbness, No fevers , No chest pain, No SOB, No urinary symptoms Review of Systems See HPI for pertinent positives & negatives. A total of 10 systems reviewed and were otherwise negative. Past Medical & Surgical Medical Problems: (1) Herniated intervertebral disc (2) Hyperlipidemia Surgical Problems: (1) History of abdominoplasty (2) History of oophorectomy Family History Patient reports no known family medical history. Social History Smoking Status: Never Smoker Alcohol Use: none Marital Status: single Housing Status: lives with family Occupation Status: employed Current/Historical Medications Scheduled Aspirin (Aspirin Ec), 81 MG PO DAILY Atorvastatin (Lipitor), 10 MG PO DAILY Escitalopram (Lexapro), 10 MG PO DAILY Fish Oil ([place]-3), 1 CAP PO DAILY Multivitamin (Multivitamin), 1 TAB PO DAILY Prednisone (Prednisone), 60 MG PO DAILY Valacyclovir Hcl (Valtrex), 1 GM PO TID Scheduled PRN Acetaminophen Tab (Tylenol), 650 MG PO Q6 PRN for Pain Artificial Tear Solution ([employer] Natural Tears 0.1-0.3 %), 1 DROP OPB QID PRN for Fluticasone Propionate (Nasal) (Flonase Allergy Relief ), 2 SPRAYS MALINDA DAILY PRN for Allergy Symptoms Ibuprofen (Advil), 400-600 MG PO Q6H PRN for Pain Naproxen (Aleve), 220 MG PO UD PRN for Pain Ondansetron Hcl (Zofran), 1 TAB PO TID PRN for Nausea or Vomiting Promethazine (Phenergan ), 1 TABS PO TID PRN for Nausea Tramadol (Ultram), 25-50 MG PO Q6H PRN for Pain [Lactra Lube], 1 APPLN OPB TID PRN for Allergies Coded Allergies: Codeine (Unverified Adverse Reaction, Mild, Naise[place] and vomiting, 04/11/16) Uncoded Allergies: narcotics (Adverse Reaction, Unknown, gi upset, 11/08/16) not really allergic just makes her stomach upset Physical Exam Vital Signs Date Time Temp Pulse Resp B/P (MAP) Pulse Ox O2 Delivery O2 Flow Rate FiO2 01/16/18 18:26 73 18 149/90 98 Room Air 01/16/18 17:16 64 01/16/18 17:13 98 Room Air 01/16/18 16:00 36.7 72 17 148/91 98 Room Air Physical Exam GENERAL: Laying on left side, alert, disheveled appearing, well nourished, no distress, non-toxic EYE EXAM: normal conjunctiva. PERRL and EOM's intact. OROPHARYNX: no exudate, no erythema, lips, buccal mucosa, and tongue normal and mucous membranes are moist NECK: supple, no nuchal rigidity, no adenopathy, non-tender LUNGS: Clear to auscultation. Normal chest wall mechanics HEART: no murmurs, S1 normal and S2 normal ABDOMEN: abdomen soft, non-tender, normo-active bowel sounds, no masses, no rebound or guarding. BACK: Back is symmetrical on inspection and there is no deformity, no midline tenderness, no CVA tenderness. SKIN: no rashes and no bruising UPPER EXTREMITIES: upper extremities are grossly normal. LOWER EXTREMITIES: No pitting edema. NEURO EXAM: Normal sensorium, Right sided facial droop, unable to close right eye or raise right eyebrow, normal speech, no weakness of arms, no weakness of legs. No drift. Finger to nose intact. Gross sensation intact. Medical Decision & Procedures ER Provider Diagnostic Interpretation: Radiology results as stated below per my review and the radiologist's interpretation: CHEST ONE VIEW PORTABLE CLINICAL HISTORY: dizzy VOMITING COMPARISON STUDY: 01/13/2018 FINDINGS: The heart is mildly enlarged. There is no failure. There is no focal pulmonary consolidation. There are no pleural effusions. There is a calcified right lower lobe granuloma. There is no free intraperitoneal air.[ IMPRESSION: No active disease in the chest. Electronically signed by: Keyshawn Hughes M.D. 01/16/2018 5:35 PM Dictated Date/Time: 01/16/2018 5:35 PM HEAD WITHOUT CONTRAST (CT) CLINICAL HISTORY: 57 years-old Female presenting with EVALUATE WEAKNESS. TECHNIQUE: Multidetector CT imaging of the head was performed without the use of intravenous contrast. IV contrast: None. A dose lowering technique was used consistent with the principles of ALARA (as low as reasonably achievable). COMPARISON: 01/13/2018. CT DOSE (mGy.cm): The estimated cumulative dose is 823.94 mGycm. FINDINGS: Unemployment Claims Adjudicator topogram: Unremarkable. Ventricles and sulci normal in size. Brain parenchyma normal in appearance with preserved haque-white differentiation. No mass effect or midline shift. No hemorrhage or acute territorial infarct. No extra-axial fluid collection. Paranasal sinuses and mastoid air cells clear. Calvarium intact. IMPRESSION: 1. No acute intracranial abnormality. Electronically signed by: Wesly Clark M.D. 01/16/2018 6:17 PM Dictated Date/Time: 01/16/2018 6:15 PM Laboratory Results 01/16/18 17:20 Red Blood Count 4.50, Mean Corpuscular Volume 88.4, Mean Corpuscular Hemoglobin 29.3, Mean Corpuscular Hemoglobin Concent 33.2, Mean Platelet Volume 9.4, Neutrophils (%) (Auto) 60.5, Lymphocytes (%) (Auto) 31.7, Monocytes (%) (Auto) 6.7, Eosinophils (%) (Auto) 0.3, Basophils (%) (Auto) 0.6, Neutrophils # (Auto) 5.32, Lymphocytes # (Auto) 2.79, Monocytes # (Auto) 0.59, Eosinophils # (Auto) 0.03, Basophils # (Auto) 0.05 01/16/18 17:20 Test 01/16/18 17:20 01/16/18 18:24 White Blood Count 8.80 K/uL (4.8-10.8) Red Blood Count 4.50 M/uL (4.2-5.4) Hemoglobin 13.2 g/dL (12.0-16.0) Hematocrit 39.8 % (37-47) Mean Corpuscular Volume 88.4 fL (80-100) Mean Corpuscular Hemoglobin 29.3 pg (25-34) Mean Corpuscular Hemoglobin Concent 33.2 g/dl (32-36) Platelet Count 344 K/uL (130-400) Mean Platelet Volume 9.4 fL (7.4-10.4) Neutrophils (%) (Auto) 60.5 % Lymphocytes (%) (Auto) 31.7 % Monocytes (%) (Auto) 6.7 % Eosinophils (%) (Auto) 0.3 % Basophils (%) (Auto) 0.6 % Neutrophils # (Auto) 5.32 K/uL (1.4-6.5) Lymphocytes # (Auto) 2.79 K/uL (1.2-3.4) Monocytes # (Auto) 0.59 K/uL (0.11-0.59) Eosinophils # (Auto) 0.03 K/uL (0-0.5) Basophils # (Auto) 0.05 K/uL (0-0.2) RDW Standard Deviation 44.6 fL (36.4-46.3) RDW Coefficient of Variation 13.7 % (11.5-14.5) Immature Granulocyte % (Auto) 0.2 % Immature Granulocyte # (Auto) 0.02 K/uL (0.00-0.02) Prothrombin Time 10.9 SECONDS (9.0-12.0) Prothromb Time International Ratio 1.0 (0.9-1.1) Activated Partial Thromboplast Time 22.7 SECONDS (21.0-31.0) Partial Thromboplastin Ratio 0.9 Anion Gap 8.0 mmol/L (3-11) Estimated GFR () 92.8 Estimated GFR (Non- 80.1 BUN/Creatinine Ratio 21.9 (10-20) Calcium Level 9.2 mg/dl (8.5-10.1) Total Bilirubin 0.3 mg/dl (0.2-1) Direct Bilirubin 0.1 mg/dl (0-0.2) Aspartate Amino Transf (AST/SGOT) 14 U/L (15-37) Alanine Aminotransferase (ALT/SGPT) 23 U/L (12-78) Alkaline Phosphatase 87 U/L (45-117) Troponin I < 0.015 ng/ml (0-0.045) Total Protein 7.1 gm/dl (6.4-8.2) Albumin 3.7 gm/dl (3.4-5.0) Thyroid Stimulating Hormone (TSH) 1.380 uIu/ml (0.300-4.500) Urine Color YELLOW Urine Appearance CLEAR (CLEAR) Urine pH 7.0 (4.5-7.5) Urine Specific [place] 1.009 (1.000-1.030) Urine Protein NEG (NEG) Urine Glucose (UA) NEG (NEG) Urine Ketones NEG (NEG) Urine Occult Blood NEG (NEG) Urine Nitrite NEG (NEG) Urine Bilirubin NEG (NEG) Urine Urobilinogen NEG (NEG) Urine Leukocyte Esterase NEG (NEG) Laboratory results per my review. Medications Administered Medications (Trade) Dose Ordered Sig/[place] Route Start Time Stop Time Status Last Admin Dose Admin Ondansetron HCl (Zofran 8mg Iv) 8 mg NOW STAT IV 01/16/18 16:56 01/16/18 16:57 DC 01/16/18 17:44 8 MG Sodium Chloride 1,000 ml @ 999 mls/hr Q1H1M STAT IV 01/16/18 16:56 01/16/18 17:56 DC 01/16/18 17:26 999 MLS/HR Meclizine HCl (Antivert Tab) 25 mg NOW STAT PO 01/16/18 16:56 01/16/18 16:57 DC 01/16/18 17:26 25 MG Potassium Chloride (Klor-Con M10) 40 meq NOW STAT PO 01/16/18 18:10 01/16/18 18:11 DC 01/16/18 19:05 40 MEQ Promethazine HCl (Phenergan Inj) 25 mg STK-MED ONCE .ROUTE 01/16/18 18:33 01/16/18 18:34 DC 01/16/18 18:39 25 MG ECG Per My Interpretation Indication: abdominal pain Rate (beats per minute): 56 Rhythm: sinus rhythm Findings: other (Normal axis, No PVC) ED Course ED COURSE: Vital signs were reviewed and showed situational hypertension The patients medical record was reviewed The above diagnostic studies were performed and reviewed. ED treatments and interventions as stated above. 165: The patient was evaluated in room B9. A complete history and physical examination was performed. 165: Meclizine HCl 25mg PO, Sodium Chloride 1000ml @ 999mls/hr IV, Zofran 8mg IV 1809: Potassium Chloride 40meq PO 183: Promethazine HCl 25mg .ROUTE 1856: Upon reevaluation, the patient is resting in bed, feeling much better. I discussed my findings with the patient and she understands and agrees with the treatment plan. Based on the patients age, coexisting illnesses, exam and lab findings the decision to treat as an outpatient was made. The patient appeared well at the time of discharge. Medical Decision Differential diagnosis includes etiologies such as benign positional vertigo, dehydration, hypovolemia, anemia, tumor, infection, hypoglycemia, electrolyte abnormalities, cardiac sources, intracerebral event, toxicologic, neurologic, as well as others were entertained. Patient is a 49-year-old female who presents the ER who was recently diagnosed with Brown's palsy for dizziness and nausea. She notes the dizziness started this morning. She believes that her nausea was worsened when she took her oral antiemetics that were prescribed by PCP. Neuro exam is intact with the exception of the right-sided facial droop and unable to lift her right eyebrow or close her right eye. She is already on antivirals and steroids. Labs were obtained including CBC and BMP show mild hypokalemia. LFTs, bilirubin and troponin was negative. TSH was normal. UA was negative. CT head was negative. Patient was given IV fluids, Zofran and Phenergan. She had complete resolution of her symptoms. She was updated at bedside. She was discharged with Phenergan and instructed not to take Zofran while taking Phenergan. Discussed with Pt concerning signs and symptoms to watch out for. Pt was instructed to follow up with their PCP and discussed with the patient their option to return to the ED at anytime for persistent or worsening symptoms. The appropriate anticipatory guidance and out-patient management, including indications for return to the emergency department, were explained at length to the patient and understood. Medication Reconcilliation Current Medication List: was personally reviewed by me Blood Pressure Screening Patient's blood pressure: Elevated blood pressure Blood pressure disposition: Elevated BP felt to be situational Impression Primary Impression: Dizzy Additional Impressions: Hypokalemia Brown's palsy Scribe Attestation The scribe's documentation has been prepared under my direction and personally reviewed by me in its entirety. I confirm that the note above accurately reflects all work, treatment, procedures, and medical decision making performed by me. Departure Information Dispostion Home / Self-Care Prescriptions Promethazine (Phenergan ) 12.5 Mg Tab 1 TABS PO TID Y for Nausea, #14 TAB Prov: Gavino López, DO 01/16/18 Referrals Sayda Stephenson M.D. (PCP) Forms HOME CARE DOCUMENTATION FORM, IMPORTANT VISIT INFORMATION Patient Instructions My [facility] Additional Instructions Please follow up with your primary care doctor with in the next 24 hours. Any worsening of your symptoms, please return to the ED immediately. This includes any fevers greater than 100.4, worsening pain, chest pain, shortness breath, persistent nausea, vomiting, unable to eat or drink, or any other concerning signs or symptoms from your standpoint. Please take Phenergan as prescribed. Please stop taking your Zofran. Problem Qualifiers
== END 2018-01-16 19:06 | disposition home or self-care (01) ==
LOC: C.EDB 15:59
DX: R42 Dizziness and giddiness (principal); E87.6 Hypokalemia; G51.0 Bell's palsy; E78.5 Hyperlipidemia, unspecified; Z79.82 Long term (current) use of aspirin; Z79.899 Other long term (current) drug therapy; Z88.6 Allergy status to analgesic agent; Z88.8 Allergy status to other drugs, medicaments and biological substances